=== PATIENT | male | born 1970 | race Caucasian/White ===

== ENCOUNTER 2024-11-12 18:45 | Emergency (ER) | payer BC ==
[~2024-11-12] VITALS: Ht 180.3 cm; Wt 81.7 kg
[2024-11-12 19:04] VITALS: BP 146/83; PULSE 92; RESP 16; TEMP 99; O2SAT 98
[2024-11-12] MEDS: HYDROcodone/acetaminophen 5mg/325mg tablet PO STA (20:03)
[2024-11-12] MEDS: ibuprofen tablet 400 MG TABLET PO ONE (20:03)
[2024-11-12] MEDS ORDERED: IBUP-1984 PO (20:14)
[2024-11-12] MEDS ORDERED: HYDR-3965 PO (20:15)
== END 2024-11-12 20:24 | disposition home or self-care (01) ==
LOC: ER 18:47
DX: M25.512 Pain in left shoulder (principal); Z79.1 Long term (current) use of non-steroidal anti-inflammatories (NSAID); V00.311A Fall from snowboard, initial encounter; Y93.23 Activity, snow (alpine) (downhill) skiing, snowboarding, sledding, tobogganing and snow tubing; Y92.89 Other specified places as the place of occurrence of the external cause; Y99.8 Other external cause status
CPT/HCPCS: 29105; 71045; 73030; 99284; A4565